=== PATIENT | male | born 1960 | race Caucasian/White ===

== ENCOUNTER 2022-10-18 01:09 | Inpatient (IN) | payer OTHER ==
[2022-10-18] MEDS ORDERED: Sodium Chloride 0.9% 1,000 ML IV STA (01:43)
[2022-10-18] MEDS ORDERED: Sodium Chloride 0.9% 10 ML Syringe FLUSH PRN (01:43)
[2022-10-18] MEDS ORDERED: Ondansetron 4 MG/2 ML SDV IVPUSH ONE (01:45)
[2022-10-18] MEDS ORDERED: fentaNYL 100 MCG/2 ML SDV IVPUSH ONE (01:45)
[2022-10-18] MEDS ORDERED: Iopamidol 612 MG/ML 100 ML Bottle IV STA (01:53)
[2022-10-18] MEDS ORDERED: Sodium Chloride 0.9% 50 ML IV STA (01:53)
[2022-10-18 02:30] LABS: ESTIMATED GFR 63 mL/min (>60)
[2022-10-18 03:04] LABS: TROPONIN I HIGH SENSITIVITY 6.1 pg/mL (<=60.3)
[2022-10-18] MEDS ORDERED: HYDROmorphone 1 MG/ML Syringe IVPUSH ONE (03:15)
[2022-10-18 04:16] LABS: CORONAVIRUS COVID-19 NAA NEGATIVE (NEGATIVE)
[2022-10-18] MEDS ORDERED: Ondansetron 4 MG Tab.DIS PO PRN (04:25)
[2022-10-18] MEDS ORDERED: Acetaminophen 650 MG Supp RECTAL PRN (04:25)
[2022-10-18] MEDS ORDERED: HYDROmorphone 1 MG/ML Syringe IM PRN (04:25)
[2022-10-18] MEDS ORDERED: hydrOXYzine HCL 100 MG/2 ML SDV IM PRN (04:25)
[2022-10-18] MEDS ORDERED: Ondansetron 4 MG/2 ML SDV IV PRN (04:25)
[2022-10-18] MEDS ORDERED: Sodium Chloride 0.9% 1,000 ML IV SCH (04:30)
[2022-10-18] MEDS ORDERED: Enoxaparin 40 MG/0.4 ML Syringe SUBCUT SCH (05:00)
[2022-10-18] MEDS ORDERED: HYDROmorphone 1 MG/ML Syringe IV PRN (05:08)
[2022-10-18] MEDS ORDERED: HYDROmorphone 1 MG/ML Syringe IVPUSH PRN (05:08)
[2022-10-18] MEDS ORDERED: Acetaminophen 325 MG Tab PO PRN (09:26)
[2022-10-18] MEDS ORDERED: Morphine 4 MG/ML Syringe IVPUSH ONE (09:26)
[2022-10-18] MEDS ORDERED: Piperacillin/Tazobactam 3.375 GM in Sodium Chloride 0.9% 50 ML IV ONE (09:30)
[2022-10-18] MEDS ORDERED: Piperacillin/Tazobactam/Dext 3.375 GM in Premix Bag 1 BAG IV ONE (09:30)
== END 2022-10-18 10:54 | DRG 439 ==
LOC: JP.ED 01:09 → JP.MS 04:02
PROVIDERS: ADMIT Hospitalist; ATTEND Internal Medicine
DX: K85.10 Biliary acute pancreatitis without necrosis or infection (principal); E87.20 Acidosis, unspecified; K80.71 Calculus of gallbladder and bile duct without cholecystitis with obstruction; E78.5 Hyperlipidemia, unspecified; Z20.822 Contact with and (suspected) exposure to COVID-19; I10 Essential (primary) hypertension; Z79.82 Long term (current) use of aspirin; Z79.899 Other long term (current) drug therapy; Z86.16 Personal history of COVID-19
CPT/HCPCS: 0241U; 36415; 74177; 80053; 81001; 82947; 83605; 83690; 84484; 85025; 87040; 96361; 96374; 96375; 99285-25; J1170; J1650; J2270; J2405; J2543; J3010; J3410; J3490; J7030; Q9967

== ENCOUNTER 2022-10-22 22:40 | Emergency (ER) | payer OTHER ==
[2022-10-22] MEDS ORDERED: Sodium Chloride 0.9% 10 ML Syringe FLUSH PRN (23:23)
[2022-10-22 23:56] LABS: ESTIMATED GFR 97 mL/min (>60)
[2022-10-23] MEDS ORDERED: Sodium Chloride 0.9% 10 ML Syringe FLUSH PRN (00:26)
[2022-10-23] MEDS ORDERED: Calcium Gluconate 10% 1 GM/10 ML SDV IVPUSH ONE (00:29)
[2022-10-23] MEDS ORDERED: Iopamidol 755 Mg/ML 100 ML Bottle IV SCH (00:30)
[2022-10-23] MEDS ORDERED: Sodium Chloride 0.9% 100 ML IV SCH (00:30)
[2022-10-23] MEDS ORDERED: HYDROmorphone 1 MG/ML Syringe IVPUSH ONE (01:47)
[2022-10-23] MEDS ORDERED: Clindamycin in 0.9 % Sod Chlor 600 MG in Premix Bag 1 BAG IV ONE ×2 (03:23)
== END 2022-10-23 04:03 | disposition home or self-care (01) ==
LOC: JP.ED 22:40
DX: J18.9 Pneumonia, unspecified organism (principal); K85.90 Acute pancreatitis without necrosis or infection, unspecified; K80.50 Calculus of bile duct without cholangitis or cholecystitis without obstruction; J90 Pleural effusion, not elsewhere classified; J98.11 Atelectasis; N63.10 Unspecified lump in the right breast, unspecified quadrant; E78.00 Pure hypercholesterolemia, unspecified; I10 Essential (primary) hypertension; Z79.82 Long term (current) use of aspirin; Z79.899 Other long term (current) drug therapy; Z86.16 Personal history of COVID-19; Z90.49 Acquired absence of other specified parts of digestive tract
CPT/HCPCS: 36415; 71046; 71275; 80053; 83605; 83690; 85025; 85379; 86140; 96365; 96375; 99285; J0610; J1170; J3490; Q9967; 99284